=== PATIENT | female | born 1980 | race Two or more races ===

== ENCOUNTER → 2022-05-25 | Day surgery (SDC) | payer BC ==
[2022-05-25] VITALS (18 sets, daily range): BP systolic 127–146; BP diastolic 73–91
[~2022-05-25] VITALS: Ht 167.6 cm; Wt 62.6 kg
[~2022-05-25] MED LIST: CEFAZOLIN 1000MG PREMIX 50 ML IV ONE; FENTANYL CITRATE/PF 50MCG/ML 2ML VIAL IV NR; FENTANYL CITRATE/PF 50MCG/ML 2ML VIAL ONE; HEPARIN 1000 UNITS/ML 10ML ONE; LIDOCAINE HCL 1% 10 MG/ML 10ML VIAL ONE
== END | disposition home or self-care (01) ==
LOC: ANGIO 08:33
PROVIDERS: ATTEND Physician Assistant Medical
DX: Z49.01 Encounter for fitting and adjustment of extracorporeal dialysis catheter (principal); N18.6 End stage renal disease; Z79.899 Other long term (current) drug therapy; Z98.890 Other specified postprocedural states
CPT/HCPCS: 36558; 76937; 77001; J0690; J1644; J3010; J3490; 99152; 99153; G0500

== ENCOUNTER → 2022-07-03 | Day surgery (SDC) | payer BC ==
[~2022-07-03] MED LIST changes: -CEFAZOLIN 1000MG PREMIX 50 ML IV ONE; -FENTANYL CITRATE/PF 50MCG/ML 2ML VIAL IV NR; -FENTANYL CITRATE/PF 50MCG/ML 2ML VIAL ONE; -HEPARIN 1000 UNITS/ML 10ML ONE
== END | disposition home or self-care (01) ==
LOC: ANGIO 12:18
PROVIDERS: ATTEND Physician Assistant Medical
DX: Z45.2 Encounter for adjustment and management of vascular access device (principal); Z79.899 Other long term (current) drug therapy; Z88.8 Allergy status to other drugs, medicaments and biological substances
CPT/HCPCS: 36589; J3490